=== PATIENT | male | born 1995 | race Caucasian/White ===

== ENCOUNTER → 2017-10-02 | Outpatient (CLI) | payer OTHER ==
--- NOTE | 2017-10-02 10:06 | RADIOLOGY REPORT (SQ) ---
EXAM DESCRIPTION: U/S RETROPERITON (RENAL/AORTA) COMPLETED DATE/TIME: 10/02/2017 9:35 am REASON FOR STUDY: HTN/KHANG I70.1 ATHEROSCLEROSIS OF RENAL ARTERY COMPARISON: None. TECHNIQUE: Dynamic and static grayscale images acquired of the kidneys and bladder and recorded on P ACS. Additional selected color Doppler and spectral images recorded. LIMITATIONS: None. FINDINGS: RIGHT KIDNEY: 11.1 cm in length. Normal echogenicity. No solid or suspicious masses. No hydronephrosis. No calcifications. LEFT KIDNEY: 11.1 cm in length Normal echogenicity. No solid or suspicious masses. No hydronep hrosis. No calcifications. BLADDER: No masses. OTHER FINDINGS: No other significant finding. IMPRESSION: NORMAL RENAL AND BLADDER ULTRASOUND. TECHNICAL DOCUMENTATION: JOB ID: [id number] [employer]- All Rights Reserved Reading location - IP/workstation name: [email or web address]
--- NOTE | 2017-10-02 10:47 | RADIOLOGY REPORT (SQ) ---
EXAM DESCRIPTION: U/S [facility] DUPLEX ART/GARY FLOW COMPLETED DATE/TIME: 10/02/2017 9:35 am REASON FOR STUDY: HTN/KHANG I70.1 ATHEROSCLEROSIS OF RENAL ARTERY COMPARISON: None. TECHNIQUE: Realtime and static grayscale images acquired. Selected color Doppler, velocities and spe ctral images recorded. LIMITATIONS: None. FINDINGS: RIGHT KIDNEY: RENAL ARTERY VELOCITIES: 60 cm/sec. Segmental artery velocity 50 cm/sec. RENAL VEIN: Color doppler flow present, patent. VELOCITY RATIO: 0.63. Normal waveforms. KIDNEY: Normal size. No significant pathology. LEFT KIDNEY: RENAL ARTERY VELOCITIES: 135 cm/sec. Segmental artery velocity 43 cm/sec. RENAL VEIN: Color doppler flow present, patent. VELOCITY RATIO: 1.4. Normal waveforms. KIDNEY: Normal size. No significant pathology. BLADDER: Normal. OTHER: No other significant finding. IMPRESSION: NO DOPPLER EVIDENCE OF HEMODYNAMICALLY SIGNIFICANT RENAL ARTERY STENOSIS. COMMENT: NORMAL RENAL ARTERY/AORTA VELOCITY RATIO IS LESS THAN OR EQUAL TO 3.5. TECHNICAL DOCUMENTATION: JOB ID: [id number] [employer]- All Rights Reserved Reading location - IP/workstation name: [email or web address]
== END ==
LOC: RAD 07:46
PROVIDERS: ATTEND Student in an Organized Health Care Education/Training Program
DX: I70.1 Atherosclerosis of renal artery (principal)
CPT/HCPCS: 76770; 93976